=== PATIENT | female | born 1995 | race African-American/Black ===

== ENCOUNTER 2020-02-19 21:26 | Emergency (ER) | payer BC ==
[~2020-02-19] VITALS: Ht 180.3 cm; Wt 157.7 kg
[2020-02-19 21:55] VITALS: Ht 180.3 cm; Wt 157.7 kg
[2020-02-19] MEDS ORDERED: HYDROCHLOROTH12.5 M1 PO (21:56)
[2020-02-19] MEDS ORDERED: COZAAR100 MG PO (21:56)
[2020-02-19] MEDS ORDERED: PROTONIX40 MG PO (21:57)
[2020-02-19] MEDS ORDERED: NORVASC10 MG PO (21:57)
[2020-02-19] MEDS ORDERED: VITAMIN D5000 UNI1 PO (21:58)
[2020-02-19 22:44] LABS: BASOPHILS 0.2 % (0-2); EOSINOPHILS 0.5 % (0-7); HEMATOCRIT 40.2 % (36.0-48.0); HEMOGLOBIN 13.2 g/dL (12-16); IMMATURE GRANULOCYTES 0.3 % (0-5); LYMPHOCYTES 39.1 % (15-50); MCH 27.7 pg (26.0-34.0); MCHC 32.8 g/dL (31.0-37.0); MCV 84.5 fL (80.0-100.0); MEAN PLATELET VOLUME 9.7 fL (7.4-10.4); MONOCYTES 7.3 % (2-11); NEUTROPHILS 52.6 % (40-80); PLATELET COUNT 250 10x3/uL (130-400); RBC 4.76 10x6/uL (4.00-5.40); RDW 13.2 % (11.5-14.5); WBC 10.3 10x3/uL (4.8-10.8)
[2020-02-19 22:58] LABS: BILIRUBIN NEGATIVE (NEGATIVE); GLUCOSE NEGATIVE (NEGATIVE); KETONE NEGATIVE (NEGATIVE); NITRITE NEGATIVE (NEGATIVE); SPECIFIC GRAVITY 1.025 (1.005-1.020); UROBILINOGEN NORMAL (NORMAL)
[2020-02-19 22:59] LABS: HCG URINE NEGATIVE (NEGATIVE)
[2020-02-19 23:01] LABS: ANION GAP 9.8 mmol/L (8-16); CALCIUM 8.7 mg/dL (8.5-10.1); CARBON DIOXIDE 30.1 mmol/L (21.0-32.0); CREATININE - SERUM 1.1 mg/dL (0.6-1.3); POTASSIUM - SERUM 3.9 mmol/L (3.5-5.1)
[2020-02-19 23:08] LABS: ALBUMIN 3.6 g/dL (3.4-5.0); BILIRUBIN - TOTAL 0.19 mg/dL (0.2-1.3); PROTEIN - SERUM 7.5 g/dL (6.4-8.2)
[2020-02-20] MEDS ORDERED: ULTRAM50 MG PO (02:04)
[2020-02-20 02:19] VITALS: BP 168/76
== END 2020-02-20 02:11 | disposition home or self-care (01) ==
LOC: D.ER 21:26
PROVIDERS: Family Medicine
DX: R10.13 Epigastric pain (principal); R10.11 Right upper quadrant pain; I10 Essential (primary) hypertension; J45.909 Unspecified asthma, uncomplicated; K21.9 Gastro-esophageal reflux disease without esophagitis

== ENCOUNTER 2020-07-11 00:22 | Emergency (ER) | payer BC ==
[~2020-07-11] VITALS: Ht 180.3 cm; Wt 156.0 kg
[~2020-07-11 00:22] MED LIST: COZAAR100 MG PO; HYDROCHLOROTH12.5 M1 PO; NORVASC10 MG PO; PROTONIX40 MG PO; ULTRAM50 MG PO; VITAMIN D5000 UNI1 PO
[2020-07-11 00:32] VITALS: Ht 180.3 cm; Wt 156.0 kg
[2020-07-11 01:38] LABS: ANION GAP 11.2 mmol/L (8-16); CALCIUM 8.3 mg/dL (8.5-10.1); CARBON DIOXIDE 30.4 mmol/L (21.0-32.0); POTASSIUM - SERUM 3.6 mmol/L (3.5-5.1)
[2020-07-11 01:45] LABS: ALBUMIN 3.2 g/dL (3.4-5.0); BILIRUBIN - TOTAL 0.07 mg/dL (0.2-1.3); PROTEIN - SERUM 6.8 g/dL (6.4-8.2)
[2020-07-11 01:57] LABS: HEMATOCRIT 37.6 % (36.0-48.0); HEMOGLOBIN 12.4 g/dL (12-16); LYMPHOCYTES 38.6 % (15-50); MCH 27.9 pg (26.0-34.0); MCV 84.7 fL (80.0-100.0); MEAN PLATELET VOLUME 9.9 fL (7.4-10.4); NEUTROPHILS 53.3 % (40-80); PLATELET COUNT 268 10x3/uL (130-400); RBC 4.44 10x6/uL (4.00-5.40); RDW 13.1 % (11.5-14.5); WBC 11.9 10x3/uL (4.8-10.8)
[2020-07-11] MEDS ORDERED: AUGMENTIN 875-11 TAB PO (02:17)
[2020-07-11 02:36] VITALS: BP 142/76
[2020-07-12] MEDS ORDERED: VOLTAREN75 MG PO (02:33)
== END 2020-07-11 02:36 | disposition home or self-care (01) ==
LOC: D.ER 00:22
PROVIDERS: Family Medicine
DX: H92.02 Otalgia, left ear (principal); I10 Essential (primary) hypertension; J45.909 Unspecified asthma, uncomplicated; K21.9 Gastro-esophageal reflux disease without esophagitis; R07.0 Pain in throat

== ENCOUNTER 2020-07-12 00:19 | Emergency (ER) | payer BC ==
[~2020-07-12] VITALS: Ht 180.3 cm; Wt 156.8 kg
[~2020-07-12 00:19] MED LIST changes: +AUGMENTIN 875-11 TAB PO
[2020-07-12 00:35] VITALS: Ht 180.3 cm; Wt 156.8 kg
[2020-07-12] MEDS ORDERED: VOLTAREN75 MG PO (02:33)
[2020-07-12 03:22] VITALS: BP 131/90
== END 2020-07-12 02:55 | disposition home or self-care (01) ==
LOC: D.ER 00:19
DX: S61.307A Unspecified open wound of left little finger with damage to nail, initial encounter (principal); W22.8XXA Striking against or struck by other objects, initial encounter; Y93.9 Activity, unspecified; Y92.9 Unspecified place or not applicable; I10 Essential (primary) hypertension; J45.909 Unspecified asthma, uncomplicated; K21.9 Gastro-esophageal reflux disease without esophagitis